=== PATIENT | female | born 1960 | race Caucasian/White ===

== ENCOUNTER 2019-08-15 13:11 | Emergency (ER) | payer MEDICARE, BC ==
[2019-08-15] MEDS ORDERED: CYCLOBENZAPRINE HCL 10 MG TAB PO ONE (14:15)
[2019-08-15] MEDS ORDERED: KETOROLAC TROMETHAMINE INJ 60 MG/2 ML VIAL IM ONE (14:15)
[2019-08-15] MEDS ORDERED: HYDROcodone 7.5MG/APAP 325MG 1 EA TAB PO ONE (14:15)
--- NOTE | 2019-08-15 15:12 | RAD ---
: 1960. Technique: 3 views of the left ribs and chest. Clinical history: fell with pain post left lower ribs. Findings: No evidence for rib fracture. No displaced fracture is identified. For further evaluation CT may be helpful. No destructive lesion. Left lung is clear. No effusion or pneumothorax. Impression: 1. No rib fracture identified. Electronically signed by: Josemanuel Bird MD 08/15/2019 3:11 PM CDT
--- NOTE | 2019-08-15 15:28 | ED.PDOC ---
History of Present Illness - General Chief Complaint: General Stated Complaint: rib pain,migraine Time Seen by Provider: 08/15/19 14:11 Source: patient Exam Limitations: no limitations - History of Present Illness Initial Comments: The patient is a 59-year-old female presenting to the emergency room secondary to having tripped and fallen last night while getting out of bed. She fell backwards and hit the posterior lower left rib cage on a dresser. She has a fair amount of bruising over the area of the no crepitus. Lung sounds are clear. It does hurt to take a deep breath. The continued pain since that time has triggered a migraine for her. The migraine is typical for her. No unusual symptoms with it. She is oxygenating well and vital signs are stable. Timing/Duration: other - 10 hours Severity: severe Improving Factors: immobilization Worsening Factors: movement Associated Symptoms: denies symptoms, chest pain Allergies/Adverse Reactions: Allergies Codeine Allergy (Verified 08/15/19 13:59) Etomidate Allergy (Verified 08/15/19 13:59) Sulfa Drugs Allergy (Verified 10/27/14 18:10) Home Medications: Ambulatory Orders Sumatriptan Succinate [Imitrex] 100 mg PO PRN 10/27/14 Tizanidine HCl 4 mg PO PRN 10/27/14 Trazodone HCl 100 mg PO BEDTIME 10/27/14 Aspirin [Aspirin Adult Low Dose] 81 mg PO DAILY 08/15/19 Cyclobenzaprine HCl [Flexeril] 5 mg PO TID PRN #30 tab 08/15/19 Desvenlafaxine [Desvenlafaxine ER] 50 mg PO DAILY 08/15/19 Doxepin HCl 10 mg PO DAILY 08/15/19 Hydrochlorothiazide 12.5 mg PO DAILY 08/15/19 Insulin Lispro [HumaLOG] 300 unit SUBCU .SLIDINGSCALE 08/15/19 Lisinopril 2.5 mg PO DAILY 08/15/19 Metformin HCl [Metformin Hydrochloride] 1,000 mg PO BID 08/15/19 Potassium Chloride DAILY 08/15/19 Tramadol HCl 50 mg PO Q8HR PRN #20 tab 08/15/19 Review of Systems - Review of Systems Constitutional: States: no symptoms reported EENTM: States: no symptoms reported Respiratory: States: no symptoms reported Cardiology: States: see HPI, chest pain Gastrointestinal/Abdominal: States: no symptoms reported Genitourinary: States: no symptoms reported Musculoskeletal: States: see HPI Skin: States: see HPI Neurological: States: no symptoms reported Endocrine: States: no symptoms reported All other Systems: No Change from Baseline Past Medical History (General) - Patient Medical History Hx Seizures: Yes - x1 "caused by medication x8 yrs ago. Hx Stroke: No Hx Dementia: No Hx Asthma: No Hx Cardiac Disorders: Yes - mitro valve prolapse Hx Congestive Heart Failure: No Hx Pacemaker: No Hx Hypertension: Yes Hx Thyroid Disease: No Hx Diabetes: Yes Hx Gastroesophageal Reflux: Yes - hiatal hernia Hx Renal Disease: No - hx kidney stones Hx Cancer: Yes - Ovarian Hx of HIV: No Hx Hepatitis C: No Hx MRSA: No Surgical History: Hysterectomy - Vaccination History Hx Tetanus, Diphtheria Vaccination: No Hx Influenza Vaccination: No Hx Pneumococcal Vaccination: Yes - Social History Hx Tobacco Use: No Hx Chewing Tobacco Use: No Hx Alcohol Use: Yes Hx Substance Use: No Hx Substance Use Treatment: No Hx Depression: Yes Hx Physical Abuse: No Hx Emotional Abuse: No Hx Suspected Abuse: No - Female History Patient : No Family Medical History - Family History Mother Living Status: Hx Family Hypertension: Yes Hx Family Stroke: Yes Physical Exam - Physical Exam General Appearance: Alert, No apparent distress Eye Exam: bilateral normal Ears, Nose, Throat: hearing grossly normal, normal ENT inspection, normal pharynx Neck: full range of motion, supple Respiratory: lungs clear, normal breath sounds, no respiratory distress, no accessory muscle use, other - Left posterior lower rib cage tenderness to palpation with obvious bruising. No crepitus. 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 Two-view chest x-ray and rib series on that side shows no corresponding visible pathology. Vital signs are stable. Air movement is good. It is possible there may be an mild nondisplaced rib fracture however at this point it is at least bruising. Topical heat may help with discomfort. The patient will be also be written for tramadol and Flexeril for as needed use to control discomfort. [id number] ibuprofen will also help. Keep routine follow-up with primary care doctor. ER warnings are given. She does need to practice deep breathing and make herself cough periodically. [facility] [address] [id number] 08/15/19 15:33 cement worker aware consulted. Departure - Departure Clinical Impression: Contusion of rib on left side Qualifiers: Encounter type: initial encounter Qualified Code(s): S20.212A - Contusion of left front wall of thorax, initial encounter Fall at home Qualifiers: Encounter type: initial encounter Qualified Code(s): W19.XXXA - Unspecified fall, initial encounter; Y92.009 - Unspecified place in unspecified non- institutional (private) residence as the place of occurrence of the external cause Disposition: Discharge to Home or Self Care Condition: Fair Departure Forms: ED Discharge - Pt. Copy, Patient Portal Self Enrollment Diet: regular diet Activity: increase activity as tolerated Referrals: Nilda Vogel NP [Primary Care Provider] - 1-2 Weeks Prescriptions: Tramadol HCl 50 mg PO Q8HR PRN #20 tab PRN Reason: Moderate Pain Cyclobenzaprine HCl [Flexeril] 5 mg PO TID PRN #30 tab PRN Reason: Muscle Spasms Home Medications: Ambulatory Orders Sumatriptan Succinate [Imitrex] 100 mg PO PRN 10/27/14 Tizanidine HCl 4 mg PO PRN 10/27/14 Trazodone HCl 100 mg PO BEDTIME 10/27/14 Aspirin [Aspirin Adult Low Dose] 81 mg PO DAILY 08/15/19 Cyclobenzaprine HCl [Flexeril] 5 mg PO TID PRN #30 tab 08/15/19 Desvenlafaxine [Desvenlafaxine ER] 50 mg PO DAILY 08/15/19 Doxepin HCl 10 mg PO DAILY 08/15/19 Hydrochlorothiazide 12.5 mg PO DAILY 08/15/19 Insulin Lispro [HumaLOG] 300 unit SUBCU .SLIDINGSCALE 08/15/19 Lisinopril 2.5 mg PO DAILY 08/15/19 Metformin HCl [Metformin Hydrochloride] 1,000 mg PO BID 08/15/19 Potassium Chloride DAILY 08/15/19 Tramadol HCl 50 mg PO Q8HR PRN #20 tab 08/15/19 Additional Instructions: The patient is a 59-year-old female presenting to the emergency room secondary to posterior left rib pain due to a fall last night. Two-view chest x-ray and rib series on that side shows no corresponding visible pathology. Vital signs are stable. Air movement is good. It is possible there may be an mild nondisplaced rib fracture however at this point it is at least bruising. Topical heat may help with discomfort. The patient will be also be written for tramadol and Flexeril for as needed use to control discomfort. [id number] ibuprofen will also help. Keep routine follow-up with primary care doctor. ER warnings are given. She does need to practice deep breathing and make herself cough periodically.
[2019-08-15 15:48] VITALS: BP 123/78; TEMP 98.9; O2SAT 95
== END 2019-08-15 15:48 | disposition home or self-care (01) ==
LOC: ER 13:11
DX: S20.212A Contusion of left front wall of thorax, initial encounter (principal); G43.909 Migraine, unspecified, not intractable, without status migrainosus; E11.9 Type 2 diabetes mellitus without complications; I10 Essential (primary) hypertension; I34.1 Nonrheumatic mitral (valve) prolapse; W01.190A Fall on same level from slipping, tripping and stumbling with subsequent striking against furniture, initial encounter; Z85.43 Personal history of malignant neoplasm of ovary; Z79.82 Long term (current) use of aspirin; Z79.4 Long term (current) use of insulin; Z79.899 Other long term (current) drug therapy; Z88.5 Allergy status to narcotic agent; Z88.2 Allergy status to sulfonamides; Z88.8 Allergy status to other drugs, medicaments and biological substances; Y92.9 Unspecified place or not applicable
CPT/HCPCS: 71046; 71101; 82948; J1885

== ENCOUNTER → 2020-02-25 | Outpatient (CLI) | payer MEDICARE, BC ==
--- NOTE | 2020-02-25 15:46 | MRI ---
EXAM DESCRIPTION: Lumbar Spine w/o Contrast CLINICAL HISTORY: 59 years Female, INTERVERTEBRAL DISC DISORDER, LUMBAR REGION COMPARISON: MRI lumbar spine 03/15/2015 TECHNIQUE: Multisequence, multiplanar images of the lumbar spine without intravenous contrast. FINDINGS: For the purpose of this report, the designated L5-S1 disc space will be referred to as axial T2 image 3, series 501. Vertebrae: No acute fracture or acute compression deformity. Moderate lumbar lordosis centered at L4. Normal AP alignment. No suspicious marrow signal. Mild levocurvature centered at L3-4. Spinal cord: Termination of the conus medullaris at L1. Normal nerve roots of the cauda equina. Discs, facets, spinal canal, and neural foramina: Minimal disc desiccation at L3-4. Disc space heights are predominantly maintained. L1-L2: No disc bulge. Moderate right and mild left facet arthropathy. Spinal canal and neuroforamina patent. L2-3: No disc bulge. Moderate facet arthropathy. Spinal canal patent. Neuroforamina patent. L3-L4: Minimal disc bulge. Moderate severe facet arthropathy. Spinal canal patent. Mild bilateral neural foraminal stenosis. L4-5: Small disc bulge. Severe facet arthropathy and mild right, moderate left ligament flavum hypertrophy. Moderate spinal canal stenosis with AP narrowing to 7 mm. Mild bilateral neural foraminal stenosis. L5-S1: No disc bulge. Moderate severe facet arthropathy. Spinal canal patent. Neuroforamina patent. Paraspinous soft tissues: Unremarkable. IMPRESSION: 1. No acute fracture. 2. Lumbar spondylosis with up to moderate L4-5 spinal canal stenosis. 3. No greater than mild neural foraminal stenosis. Electronically signed by: Silvano Noel MD 02/25/2020 3:44 PM CDT
== END ==
LOC: MRI 08:52
PROVIDERS: ATTEND Family Medicine
DX: M51.86 Other intervertebral disc disorders, lumbar region (principal); M47.896 Other spondylosis, lumbar region; M48.061 Spinal stenosis, lumbar region without neurogenic claudication

== ENCOUNTER → 2020-03-24 | Outpatient (CLI) | payer MEDICARE, BC ==
--- NOTE | 2020-03-24 17:14 | MRI ---
EXAM DESCRIPTION: Cervical Spine: MRI. CLINICAL HISTORY: 59 years Female RADICULOPATHY COMPARISON: Cervical TECHNIQUE: Multiplanar, high-field MRI, multiple sequences, non-contrast Cervical spine. FINDINGS: C4-C5: Normal signal in the disc with disc space preserved. Small right-sided uncinate spur with mild to moderate right neural foraminal narrowing. Mild canal narrowing to the right of midline. Left neuroforamen patent. Facets are unremarkable. C5-C6: Minimal disc desiccation and small uncinate spur on the right with minimal narrowing of the right foramen. Minimal anterior disc bulge. Minimal bulging into the canal, abutting the cord. Canal and left neuroforamen are patent. C6-C7: Minimal desiccation and disc space loss. Trace midline bulge but not touching the cord. Mild canal narrowing. Bilateral neural foramina are patent. Facet joints are negative. Normal signal in the C2-3 disc, C3-4 disc, and C7-T1 disc with no bulging. Disc spaces preserved. Canal and neural foramina are patent. Facet joints . Spinal alignment neutral alignment upper segments.. No cord compression or cord edema. Atlantoaxial joint unremarkable.. Base of the cerebellar tonsils is at the level of the foramen magnum. Paravertebral soft tissues negative. Vertebral bodies are not compressed at any level. Normal marrow signal in the remaining vertebral bodies and the posterior elements. IMPRESSION: 1. Narrowing of the right neural foramina at C4-5 and C5-C6 secondary density spurs. No neural foraminal or canal stenosis. No cord compression or nerve impingement. 2. Desiccation of the C6-C7 disc with minimal disc space loss. No cord compression or nerve impingement. Electronically signed by: Jose Ramon Jack MD 03/24/2020 5:13 PM CDT
== END ==
LOC: MRI 12:51
PROVIDERS: ATTEND Family Medicine Sports Medicine
DX: M50.123 Cervical disc disorder at C6-C7 level with radiculopathy (principal); M25.78 Osteophyte, vertebrae

== ENCOUNTER → 2020-05-23 | Outpatient (CLI) | payer MEDICARE, BC | LOC: GMA MATASK 13:34 | PROVIDERS: ATTEND Family Medicine | DX: I10 Essential (primary) hypertension (principal); E11.9 Type 2 diabetes mellitus without complications ==